=== PATIENT | female | born 1950 | race African-American/Black ===

== ENCOUNTER 2019-08-16 21:33 | Emergency (ER) | payer MEDICARE, OTHER ==
[~2019-08-16] VITALS: Ht 154.9 cm; Wt 66.3 kg
[~2019-08-16 21:33] MED LIST: AMLO5TAB10 PO; BP MED; RANI-376 PO; SERT50TA PO; SIMV5TAB PO
[2019-08-16] MEDS ORDERED: IV NORMAL SALINE 1000ML BAG 1,000 ML IV SCH (22:00)
[2019-08-16] MEDS ORDERED: HYDROcodone/APAP 7.5/325MG 1 TAB TABLET PO ONE (22:30)
--- NOTE | 2019-08-16 22:31 | PHYS DOC ---
Past Medical History Past Medical History: High Cholesterol, Hypertension, Kidney Infection, TIA, Other Additional Past Medical Histor: KIDNEY DISEASE Past Surgical History: Hysterectomy, Other Additional Past Surgical Histo: CAROTID ENDARDARECTOMY, BREAST BIOPSY x2 Smoking Status: Current Every Day Smoker Additional Information: 03/16 ppd Alcohol Use: None Drug Use: Marijuana General Adult EDM: Chief Complaint: LOWER EXT PAIN HPI: HPI: Patient is a 69 year old female who presents with complaint of left lower leg pain that started earlier today. Patient states that it feels like it swollen and is getting painful in the calf. She states that pain is worsened with weightbearing. She denies any chest pain, cough or shortness of breath. Patient rates pain at a 6 out of 10. She denies any fever. [] Review of Systems: Review of Systems: Constitutional: Denies fever or chills. [] Respiratory: Denies cough or shortness of breath. [] Cardiovascular: Denies chest pain or edema. [] GI: Denies abdominal pain, nausea, vomiting, bloody stools or diarrhea. [] Musculoskeletal: Complains of left lower leg pain. [] Integument: Denies rash. [] Neurologic: Denies headache, focal weakness or sensory changes. [] A full 10 point review of systems has been reviewed and is otherwise negative. Heart Score: Risk Factors: Risk Factors: DM, Current or recent (<one month) smoker, HTN, HLP, family history of CAD, obesity. Risk Scores: Score 0 - 3: 2.5% MACE over next 6 weeks - Discharge Home Score 4 - 6: 20.3% MACE over next 6 weeks - Admit for Clinical Observation Score 7 - 10: 72.7% MACE over next 6 weeks - Early Invasive Strategies Current Medications: Current Medications Medications (Trade) Dose Ordered Sig/Yue Start Time Stop Time Status Last Admin Dose Admin Acetaminophen/ Hydrocodone Bitart (Lortab 7.5/325) 1 tab 1X ONCE 08/16/19 22:30 08/16/19 22:31 Sodium Chloride 1,000 ml @ 1,000 mls/hr Q1H 08/16/19 22:00 08/16/19 22:59 Allergies: Allergies: Allergies Coded Allergies Type Severity Reaction Last Updated Verified Penicillins Allergy Intermediate ROCEPHIN OK 06/14/15 No morphine Allergy Intermediate 03/25/14 No propoxyphene Adverse Reaction Mild "I CRIES" 06/13/15 Yes Physical Exam: PE: Constitutional: Well developed, well nourished, no acute distress, non-toxic appearance. [] HENT: Normocephalic, atraumatic, bilateral external ears normal, oropharynx moist, no oral exudates, nose normal. [] Eyes: PERRLA, EOMI, conjunctiva normal, no discharge. [] Neck: Normal range of motion, no tenderness, supple, no stridor. [] Cardiovascular: Regular rate and rhythm [] Lungs & Thorax: Bilateral breath sounds clear to auscultation [] Abdomen: Bowel sounds normal, soft, no tenderness. [] Skin: Warm, dry, no erythema, no rash. [] Extremities: Left lower extremity demonstrates swelling and tenderness in the calf. [] Neurologic: Alert and oriented X 3, no focal deficits noted. [] Current Patient Data: Vital Signs: Vital Signs Date Time Temp Pulse Resp B/P (MAP) Pulse Ox O2 Delivery O2 Flow Rate FiO2 08/16/19 21:38 98.2 67 16 157/70 (99) 98 Room Air 98.2 EKG: EKG: [] Radiology/Procedures: Radiology/Procedures: [] Impression: PROCEDURE: TIBIA FIBULA LEFT EXAM: AP lateral views left tibia/fibula DATE: 08/16/2019 11:11 PM INDICATION: Left lower leg pain COMPARISON: No Prior FINDINGS: No evidence of acute fracture or dislocation. Diffuse soft tissue swelling about the left lower leg. Small posterior calcaneal osteophyte. IMPRESSION: No evidence of acute fracture or dislocation. Electronically signed by: Geo Grissom MD (08/16/2019 11:34 PM) [facility] Course & Med Decision Making: Course & Med Decision Making Pertinent Labs and Imaging studies reviewed. (See chart for details) [] Dragon Disclaimer: Dragon Disclaimer: This electronic medical record was generated, in whole or in part, using a voice recognition dictation system. Departure Departure Impression: Primary Impression: Left leg pain Disposition: 01 HOME, SELF-CARE Condition: STABLE Referrals: ANDRY SANCHEZ (PCP) Patient Instructions: Leg Cramps, Musculoskeletal Pain Scripts Hydrocodone/Apap 5-325 (NORCO 5-325 TABLET) 1 Each Tablet 1-2 EACH PO PRN Q6HRS PRN for PAIN, #15 as needed for pain Prov: MERCY RADER Jr. DO 08/17/19 MERCY RADER Jr. DO Aug 16, 2019 22:31
[2019-08-16 22:37] LABS: BASO # 0.1 x10^3/uL (0.0-0.2); BASO % 1 % (0-3); EOS # 0.1 x10^3/uL (0.0-0.7); EOS % 2 % (0-3); HEMATOCRIT 37.2 % (36.0-47.0); HEMOGLOBIN 12.5 g/dL (12.0-15.5); LYMPH # 2.6 x10^3/uL (1.0-4.8); LYMPH % 32 % (24-48); MEAN CORPUSCULAR HEMOGLOBIN 27 pg (25-35); MEAN CORPUSCULAR HGB CONC 34 g/dL (31-37); MEAN CORPUSCULAR VOLUME 81 fL (79-100); MONO # 0.7 x10^3/uL (0.0-1.1); MONO % 9 % (0-9); NEUT # 4.6 x10^3/uL (1.8-7.7); NEUT % 57 % (31-73); PLATELET COUNT 322 x10^3/uL (140-400); RED BLOOD COUNT 4.59 x10^6/uL (3.50-5.40); RED CELL DISTRIBUTION WIDTH 17.4 % (11.5-14.5); WHITE BLOOD COUNT 8.1 x10^3/uL (4.0-11.0)
[2019-08-16 22:46] LABS: CALCIUM 9.4 mg/dL (8.5-10.1); CREATININE 1.6 mg/dL (0.6-1.0)
[2019-08-16 22:47] LABS: GFR 38.7; POTASSIUM 3.5 mmol/L (3.5-5.1)
[2019-08-16 22:53] LABS: ALBUMIN 3.5 g/dL (3.4-5.0); TOTAL BILIRUBIN 0.1 mg/dL (0.2-1.0)
--- NOTE | 2019-08-16 23:37 | RAD ---
EXAM: AP lateral views left tibia/fibula DATE: 08/16/2019 11:11 PM INDICATION: Left lower leg pain COMPARISON: No Prior FINDINGS: No evidence of acute fracture or dislocation. Diffuse soft tissue swelling about the left lower leg. Small posterior calcaneal osteophyte. IMPRESSION: No evidence of acute fracture or dislocation. Electronically signed by: Geo Grissom MD (08/16/2019 11:34 PM) [facility]
[2019-08-17] MEDS ORDERED: HYDR-3164 PO (00:11)
[2019-08-17 00:15] VITALS: BP 151/80
== END 2019-08-17 00:25 | disposition home or self-care (01) ==
LOC: ER 21:33
DX: M79.662 Pain in left lower leg (principal); E78.00 Pure hypercholesterolemia, unspecified; I10 Essential (primary) hypertension; Z86.73 Personal history of transient ischemic attack (TIA), and cerebral infarction without residual deficits; F17.200 Nicotine dependence, unspecified, uncomplicated; Z90.710 Acquired absence of both cervix and uterus; Z88.0 Allergy status to penicillin; Z88.5 Allergy status to narcotic agent; Z88.8 Allergy status to other drugs, medicaments and biological substances
CPT/HCPCS: 36415; 73590; 80053; 85025; 85379; 99285; J7030